=== PATIENT | male | born 1960 | race Two or more races ===

== ENCOUNTER 2022-05-02 10:22 | Inpatient (IN) | payer OTHER ==
[~2022-05-02] VITALS: Ht 167.6 cm; Wt 59.9 kg
[2022-05-02] MEDS ORDERED: LIPITOR20 MG (11:17)
== END 2022-05-03 15:38 | disposition left against medical advice (07) | DRG 392 ==
LOC: ER 10:22 → SEC-K 18:19
PROVIDERS: ADMIT Internal Medicine; ATTEND Internal Medicine
PROC: 0DJ08ZZ Inspection of Upper Intestinal Tract, Via Natural or Artificial Opening Endoscopic (ICD-10-PCS; principal; 2022-05-03)
DX: K20.80 Other esophagitis without bleeding (principal); K29.80 Duodenitis without bleeding